=== PATIENT | female | born 1985 | race Caucasian/White ===

== ENCOUNTER 2023-09-24 21:58 | Inpatient (IN) | payer OTHER ==
[2023-09-24 22:40] VITALS: BMI 26.3
[2023-09-25] MEDS ORDERED: ACETAMINOPHEN 325 MG TABLET (FP) ONE (03:04)
[2023-09-25] MEDS ORDERED: POLYETHYLENE GLYCOL (HEALTHYLAX) 3350 17 GM PACKET PO PRN (03:14)
[2023-09-25] MEDS ORDERED: IBUPROFEN 400 MG TABLET (FP) PO PRN (03:14)
[2023-09-25] MEDS ORDERED: NALOXONE HCL 0.4 MG/ML VIAL IM PRN (03:14)
[2023-09-25] MEDS ORDERED: BENZOCAINE/MENTHOL (CHLORASEPTIC ) LOZENGE MM PRN (03:14)
[2023-09-25] MEDS ORDERED: DICYCLOMINE HCL 10 MG CAPSULE PO PRN (03:14)
[2023-09-25] MEDS ORDERED: guaiFENesin 600 MG TABLET.ER (FP) PO PRN (03:14)
[2023-09-25] MEDS ORDERED: ONDANSETRON *ODT* 4 MG TABLET SL PRN (03:14)
[2023-09-25] MEDS ORDERED: NALOXONE (NARCAN) HCL 4 MG/0.1 ML SPRAY NS PRN (03:14)
[2023-09-25] MEDS ORDERED: BISMUTH SUBSALICYLATE 524 MG/30 ML PO PRN (03:14)
[2023-09-25] MEDS ORDERED: BENZONATATE 200 MG CAPSULE PO PRN (03:14)
[2023-09-25] MEDS ORDERED: LOPERAMIDE HCL 2 MG CAPSULE PO PRN (03:14)
[2023-09-25] MEDS: methaDONE HCL 10 MG TABLET (FOR DETOX USE ONLY) PO ONE (04:18)
[2023-09-25] MEDS: PRENATAL VITAMINS W/ FOLIC ACID TABLET (FP) PO SCH (09:20)
[2023-09-25] MEDS: IBUPROFEN 600 MG TABLET (FP) PO PRN (12:23)
[2023-09-25] MEDS: METHOCARBAMOL 500 MG TABLET PO PRN (12:23)
[2023-09-25] MEDS: hydrOXYzine PAMOATE 25 MG CAPSULE (FP) PO PRN (15:00)
[2023-09-25] MEDS: cloNIDine HCL 0.1 MG TABLET PO PRN (15:54)
[2023-09-25] MEDS: THIAMINE 100 MG TABLET PO SCH (21:27)
[2023-09-25] MEDS: MELATONIN 5 MG TABLETS PO SCH (21:27)
[2023-09-25] MEDS: traZODone HCL 50 MG TABLET (FP) PO SCH (21:27)
[2023-09-26] MEDS: ACETAMINOPHEN 325 MG TABLET (FP) PO PRN (05:51)
[2023-09-26 11:41] LABS: HEMATOCRIT 30.4 % (32.4-45.2); HEMOGLOBIN 9.9 GM/dL (10.7-15.3); MCH 25.1 pg (25.7-33.7); MCHC 32.5 g/dl (32.0-36.0); MEAN CELL VOLUME 77.1 fl (80-96); MEAN PLT VOLUME 9.2 fl (7.5-11.1); PLATELET COUNT 211 10^3/uL (134-434); RBC 3.94 M/mm3 (3.60-5.2); RDW 17.7 % (11.6-15.6); WHITE BLOOD COUNT 4.8 K/mm3 (4.0-10.0)
[2023-09-26 11:50] LABS: ALBUMIN 3.5 g/dl (3.4-5.0); CALCIUM 9.1 mg/dL (8.5-10.1)
[2023-09-26 11:51] LABS: BLOOD UREA NITROGEN 12.7 mg/dL (7-18)
[2023-09-26 11:52] LABS: CREATININE 0.8 mg/dL (0.55-1.3)
[2023-09-26 11:53] LABS: BILIRUBIN,TOTAL 0.5 mg/dL (0.2-1); TOT PROT 7.1 g/dl (6.4-8.2)
[2023-09-26] MEDS: MAGNESIUM HYDROX 2400MG/30ML ORAL SUSPENSION 30 ML CUP PO PRN (15:23)
[2023-09-27] MEDS: methaDONE HCL 10 MG TABLET (FOR DETOX USE ONLY) PO ONE ×2 (09:17→11:01)
[2023-09-27] MEDS: diazePAM 5 MG TABLET PO ONE ×2 (09:17→09:25)
[2023-09-27] MEDS: TRIMETHOBENZAMIDE HCL 200MG/2ML INJ IM ONE (09:41)
[2023-09-27] MEDS: MAG HYDROX/AL HYDROX/SIMETH 30 ML UNIT-DOSE CUP PO PRN (11:01)
[2023-09-27 11:14] VITALS: BP 159/72; PULSE 47
[2023-09-27 11:18] VITALS: RESP 14; TEMP 97.8
[2023-09-27] MEDS: BICTEGRAV/EMTRICIT/TENOFOV (BIKTARVY) 50-200-25 MG TABLET PO SCH (12:19)
[2023-09-29] MEDS ORDERED: methaDONE HCL 10 MG TABLET (FOR DETOX USE ONLY) PO ONE (10:00)
== END 2023-09-27 23:06 | disposition short-term general hospital (02) | DRG 773 ==
LOC: YASAS 21:58 → Y3N 09-25 03:45
PROVIDERS: ADMIT Allergy & Immunology; ATTEND Surgery
PROC: HZ2ZZZZ Detoxification Services for Substance Abuse Treatment (ICD-10-PCS; principal; 2023-09-25)
DX: F11.23 Opioid dependence with withdrawal (principal); F19.982 Other psychoactive substance use, unspecified with psychoactive substance-induced sleep disorder; F41.9 Anxiety disorder, unspecified; F31.9 Bipolar disorder, unspecified; Z21 Asymptomatic human immunodeficiency virus [HIV] infection status; R11.0 Nausea; R06.4 Hyperventilation; R07.89 Other chest pain; R00.1 Bradycardia, unspecified; Z91.51 Personal history of suicidal behavior; Z56.0 Unemployment, unspecified
CPT/HCPCS: 36415; 80053; 80305; 80307; 81025; 85027; 86780; 93005; 93010

== ENCOUNTER 2023-09-27 12:23 | Inpatient (IN) | payer OTHER ==
[2023-09-27] MEDS ORDERED: FAMOTIDINE 20 MG/50 ML IVPB 20 MG/50 ML MG IVPB ONE (13:03)
[2023-09-27] MEDS ORDERED: ACETAMINOPHEN INJECTION 100 ML IVPB ONE (13:03)
[2023-09-27] MEDS ORDERED: ONDANSETRON 4 MG/2 ML VIAL ONE (13:07)
[2023-09-27] MEDS: SODIUM CHLORIDE 0.9% 500 ML INFUS.BAG IV ONE ×2 (13:22→20:23)
[2023-09-27] MEDS: ACETAMINOPHEN 1000 MG/100 ML BAG IVPB ONE (13:22)
[2023-09-27] MEDS: FAMOTIDINE 20 MG/50 ML IVPB 20 MG/50 ML MG IVPB ONE (13:23)
[2023-09-27 13:36] LABS: BASO % 0.3 % (0-2.0); HEMATOCRIT 35.6 % (32.4-45.2); HEMOGLOBIN 11.6 GM/dL (10.7-15.3); LYMPH % 13.2 % (8-40); MCH 25.2 pg (25.7-33.7); MCHC 32.6 g/dl (32.0-36.0); MEAN CELL VOLUME 77.5 fl (80-96); MONO % 3.5 % (3.8-10.2); PLATELET COUNT 250 10^3/uL (134-434); RBC 4.59 M/mm3 (3.60-5.2); RDW 17.2 % (11.6-15.6)
[2023-09-27 13:59] LABS: POTASSIUM 4.1 mmol/L (3.5-5.1)
[2023-09-27] MEDS: ONDANSETRON 4 MG/2 ML VIAL IVPB ONE (14:00)
[2023-09-27 14:01] LABS: CALCIUM 9.4 mg/dL (8.5-10.1)
[2023-09-27 14:03] LABS: BLOOD UREA NITROGEN 14.9 mg/dL (7-18)
[2023-09-27 14:04] LABS: URINE APPEARANCE CLEAR; URINE BILIRUBIN NEGATIVE (NEGATIVE); URINE COLOR YELLOW; URINE GLUCOSE (UA) NEGATIVE (NEGATIVE); URINE KETONE 4+ (NEGATIVE); URINE LEUK ESTERASE NEGATIVE (NEGATIVE); URINE NITRITE NEGATIVE (NEGATIVE); URINE PROTEIN TRACE (NEGATIVE); URINE UROBILINOGEN 0.2 mg/dL (0.2-1.0)
[2023-09-27 14:05] LABS: CREATININE 0.8 mg/dL (0.55-1.3)
[2023-09-27 14:07] LABS: BILIRUBIN,TOTAL 0.4 mg/dL (0.2-1); TOT PROT 8.1 g/dl (6.4-8.2)
[2023-09-27] MEDS ORDERED: KETOROLAC TROMETHAMINE 15 MG/ML VIAL ONE (14:16)
[2023-09-27] MEDS: KETOROLAC TROMETHAMINE 15 MG/ML VIAL IVPUSH ONE (14:21)
[2023-09-27] MEDS ORDERED: methaDONE HCL 10 MG TABLET ONE (17:09)
[2023-09-27] MEDS: methaDONE HCL 10 MG TABLET PO ONE (17:14)
[2023-09-27] MEDS ORDERED: MORPHINE SULFATE 2 MG/ML SYRINGE ONE (17:26)
[2023-09-27] MEDS: morphine SULFATE 4 MG/ML VIAL IVPUSH ONE (17:37)
[2023-09-27] MEDS ORDERED: METOCLOPRAMIDE HCL INJECTION 10 MG/2 ML VIAL ONE (20:10)
[2023-09-27] MEDS: METOCLOPRAMIDE HCL INJECTION 10 MG/2 ML VIAL IVPB ONE (20:23)
[2023-09-27] MEDS: PANTOPRAZOLE SODIUM 40 MG VIAL IVPUSH SCH (22:39)
[2023-09-27] MEDS: ACETAMINOPHEN 1000 MG/100 ML BAG IVPB PRN (22:40)
[2023-09-27] MEDS: DEXTROSE 5%-NORMAL SALINE 1,000 ML IV SCH (22:40)
[2023-09-27] MEDS: MELATONIN 5 MG TABLETS PO ONE (23:18)
[2023-09-27 23:28] VITALS: BMI 24.9
[2023-09-28] MEDS: KETOROLAC TROMETHAMINE 15 MG/ML VIAL IVPUSH ONE (00:58)
[2023-09-28] MEDS: SIMETHICONE 40 MG/0.6 ML BOTTLE PO ONE (06:13)
[2023-09-28 08:42] LABS: BASO % 0.4 % (0-2.0); HEMATOCRIT 34.5 % (32.4-45.2); HEMOGLOBIN 11.2 GM/dL (10.7-15.3); LYMPH % 19.4 % (8-40); MCHC 32.4 g/dl (32.0-36.0); MEAN CELL VOLUME 77.3 fl (80-96); MEAN PLT VOLUME 9.3 fl (7.5-11.1); MONO % 9.3 % (3.8-10.2); NEUT % 70.9 % (42.8-82.8); PLATELET COUNT 260 10^3/uL (134-434); RBC 4.47 M/mm3 (3.60-5.2); RDW 17.3 % (11.6-15.6); WHITE BLOOD COUNT 9.2 K/mm3 (4.0-10.0)
[2023-09-28 09:02] LABS: POTASSIUM 3.9 mmol/L (3.5-5.1)
[2023-09-28 09:08] LABS: ALBUMIN 3.8 g/dl (3.4-5.0); BLOOD UREA NITROGEN 12.9 mg/dL (7-18); CALCIUM 8.9 mg/dL (8.5-10.1); MAGNESIUM 2.2 mg/dL (1.8-2.4)
[2023-09-28 09:11] LABS: CREATININE 0.7 mg/dL (0.55-1.3)
[2023-09-28 09:12] LABS: PHOSPHOROUS 3.1 mg/dL (2.5-4.9)
[2023-09-28 09:13] LABS: BILIRUBIN,TOTAL 0.4 mg/dL (0.2-1); TOT PROT 7.6 g/dl (6.4-8.2)
[2023-09-28] MEDS: ONDANSETRON 4 MG/2 ML VIAL IVPB ONE (09:58)
[2023-09-28] MEDS: methaDONE HCL 10 MG TABLET PO SCH (09:59)
[2023-09-28] MEDS: ENOXAPARIN NA (PORCINE) 40 MG/0.4 ML DISP.SYRIN SQ SCH (10:00)
[2023-09-28] MEDS: BICTEGRAV/EMTRICIT/TENOFOV (BIKTARVY) 50-200-25 MG TABLET PO SCH (16:50)
[2023-09-28] MEDS: MELATONIN 5 MG TABLETS PO PRN (21:13)
[2023-09-29] MEDS ORDERED: ACETAMINOPHEN 500 MG TABLET (FP) PO PRN (02:11)
[2023-09-29] MEDS: POLYETHYLENE GLYCOL (HEALTHYLAX) 3350 17 GM PACKET PO ONE (03:06)
[2023-09-29] MEDS: ACETAMINOPHEN 1000 MG/100 ML BAG IVPB PRN (03:06)
[2023-09-29] MEDS: SENNOSIDES 8.6MG TABLET (FP) PO PRN (10:37)
[2023-09-29] MEDS: MELATONIN 5 MG TABLETS PO PRN (21:23)
[2023-09-29] MEDS ORDERED: POLYETHYLENE GLYCOL (HEALTHYLAX) 3350 17 GM PACKET PO PRN (22:00)
[2023-09-30 08:18] LABS: MCH 25.5 pg (25.7-33.7); MCHC 33.3 g/dl (32.0-36.0); MEAN CELL VOLUME 76.6 fl (80-96); MEAN PLT VOLUME 9.3 fl (7.5-11.1); PLATELET COUNT 231 10^3/uL (134-434); RBC 4.31 M/mm3 (3.60-5.2); RDW 17.7 % (11.6-15.6); WHITE BLOOD COUNT 4.1 K/mm3 (4.0-10.0)
[2023-09-30 08:26] LABS: INR 1.2 (0.83-1.09); PROTHROMBIN TIME (PATIENT) 13.5 SEC (9.7-13.0)
[2023-09-30 08:30] LABS: POTASSIUM 3.9 mmol/L (3.5-5.1)
[2023-09-30 08:34] LABS: CALCIUM 8.7 mg/dL (8.5-10.1)
[2023-09-30 08:35] LABS: ALBUMIN 3.6 g/dl (3.4-5.0); BLOOD UREA NITROGEN 12.2 mg/dL (7-18)
[2023-09-30 08:38] LABS: CREATININE 0.9 mg/dL (0.55-1.3)
[2023-09-30 08:40] LABS: BILIRUBIN,TOTAL 0.4 mg/dL (0.2-1)
[2023-09-30 13:16] VITALS: TEMP 98
[2023-09-30 14:08] VITALS: PULSE 42
[2023-09-30 14:21] VITALS: BP 116/60; RESP 14
[2023-09-30] MEDS ORDERED: methaDONE HCL 10 MG TABLET PO SCH (15:41)
[2023-09-30] MEDS ORDERED: PANTOPRAZOLE 40 MG TABLET PO SCH (22:00)
[2023-10-01] MEDS ORDERED: POLYETHYLENE GLYCOL (HEALTHYLAX) 3350 17 GM PACKET PO SCH (10:00)
== END 2023-09-30 18:08 | disposition home or self-care (01) | DRG 243 ==
LOC: JER 12:23 → OBSVTOIN 18:04 → JERBED 18:04 → UNDOADMOB 18:04 → INTOOBSV 18:04 → JERBED 20:48 → J4S 20:48 → OBSVTOIN 09-28 15:49 → JERBED 09-28 15:49
PROVIDERS: ADMIT Internal Medicine; ATTEND Internal Medicine
PROC: 0DB68ZX Excision of Stomach, Via Natural or Artificial Opening Endoscopic, Diagnostic (ICD-10-PCS; 2023-09-30)
PROC: 0DB58ZX Excision of Esophagus, Via Natural or Artificial Opening Endoscopic, Diagnostic (ICD-10-PCS; principal; 2023-09-30 13:00)
DX: K20.90 Esophagitis, unspecified without bleeding (principal); K25.9 Gastric ulcer, unspecified as acute or chronic, without hemorrhage or perforation; F32.A Depression, unspecified; R25.1 Tremor, unspecified; F11.20 Opioid dependence, uncomplicated; Z21 Asymptomatic human immunodeficiency virus [HIV] infection status; E86.0 Dehydration; N83.202 Unspecified ovarian cyst, left side
CPT/HCPCS: 36415; 71045-TC-FY; 74177-TC; 76830-TC; 80053; 81003; 83690; 83735; 84100; 84484; 84703; 85025; 85027; 85610; 87086; 87635; 88305-TC; 93005; 93010; 99285-25; J0131; Q9967